=== PATIENT | male | born 1975 | race Hispanic/Latino ===

== ENCOUNTER 2018-07-24 10:51 | Emergency (ER) | payer SELFPAY ==
[2018-07-24] MEDS ORDERED: CEFAZOLIN SODIUM 1 GM VIAL ONE (11:21)
[2018-07-24] MEDS ORDERED: TETANUS/DIPHTHERIA TOXOID [ADULT] 0.5 ML VIAL IM ONE (11:21)
[2018-07-24] MEDS ORDERED: LIDOCAINE HCL 1% 20 ML VIAL ONE (11:21)
[2018-07-24] MEDS ORDERED: KETOROLAC TROMETHAMINE 30MG/ML ONE (12:24)
== END 2018-07-24 12:41 | disposition home or self-care (01) ==
LOC: EDH 10:51
DX: S62.636B Displaced fracture of distal phalanx of right little finger, initial encounter for open fracture (principal); W31.0XXA Contact with mining and earth-drilling machinery, initial encounter; Y93.89 Activity, other specified; Y92.69 Other specified industrial and construction area as the place of occurrence of the external cause; Y99.8 Other external cause status
CPT/HCPCS: 12002; 73130; 90471; 90714; 96372 ×2; 99284; A4218; J0690; J1885